=== PATIENT | male | born 1955 | race Caucasian/White ===

== ENCOUNTER 2022-03-17 16:29 | Emergency (ER) | payer OTHER ==
[2022-03-17 17:33] LABS: HEMOGLOBIN 14.5 gm/dl (14.0-17.5); RED BLOOD COUNT 5.47 M/UL (4.20-5.50); WHITE BLOOD COUNT 4.8 K/UL (4.5-11.0)
== END 2022-03-17 19:45 | disposition home or self-care (01) ==
LOC: ER1 16:29
PROVIDERS: Emergency Medicine
DX: S80.11XA Contusion of right lower leg, initial encounter (principal); S20.212A Contusion of left front wall of thorax, initial encounter; V43.62XA Car passenger injured in collision with other type car in traffic accident, initial encounter; Y92.410 Unspecified street and highway as the place of occurrence of the external cause
CPT/HCPCS: 71045; 73590; 80053; 82550; 82553; 84484; 85025; 93005; 96374; 99284; J2060